=== PATIENT | female | born 1990 | race African-American/Black ===

== ENCOUNTER 2017-03-26 03:17 | Emergency (ER) | payer SELFPAY ==
[2017-03-26 03:27] VITALS: BP 146/87; BMI 95.7
--- NOTE | 2017-03-26 03:49 | DR.GENAD ---
HPI - PCP Primary Care Physician: NFD - Complaint/Symptoms Chief Complaint:: FACIAL PAIN AND NOSE BLEED - Nurses notes reviewed Nurses Notes Review: Yes - Source History Provided: Patient - Mode of Arrival Mode of Arrival: Ambulatory - Timing Onset of Chief Complaint: 03/26/17 Came on: Suddenly - Duration Duration: Constant Duration: Minutes - Location Location: face - Severity Severity: Mild - Modifying Factors Worsens:: palpation - Associated Signs and Symptoms Associated Signs and Symptoms: nose bleed PMH - PMH Past Medical History: No Past Surgical History: No - Family History History of Family Medical Conditions: Yes Family Medical History: Diabetes Mellitus - Social History Alcohol Use: Occasionally Do you use any recreational Drugs:: Yes (MJ) Lives With: Family Lives Where: Home - infectious screening In the last 2 months have you had wt loss of >10#?: NO Have you had fever, night sweats or hemotysis?: No Have you traveled outside the country in the last 6 months?: No Isolation: Standard ROS - Review of Systems Constitutional: No Symptoms Reported Eyes: No Symptoms Reported ENTM: Nose Pain, Epistaxis Respiratoy: No Symptoms Reported Cardiovascular: No Symptoms Reported Gastrointestinal/Abdominal: No Symptoms Reported Genitourinary: No Symptoms Reported Neurological: No Symptoms Reported Musculoskeletal: No Symptoms Reported Integumentary: No Symptoms Reported Hematologic/Lymphatic: No Symptoms Reported Endocrine: No Symptoms Reported Psychiatric: No Symptoms Reported PE - Vital Signs Vitals: Temperature 98.2 F Pulse Rate 118 Respiratory Rate 16 Blood Pressure 146/87 O2 Sat by Pulse Oximetry 99 - General Limitations: No Limitations General Appearance: Alert, In No Apparent Distress - Head Head Exam: Normal Inspection - Eyes Eye exam: Normal Appearance, EOMI. negative: Scleral Icterus, Conjunctival Injection - ENT ENT Exam: Normal Oropharynx External Ear Exam: Normal External Inspection Nose Exam: Other (painful and bleeding) Mouth Exam: Normal Inspection Throat Exam: Normal Inspection - Neck Neck Exam: Normal Inspection, Full ROM, Trachea Midline - Chest Chest Inspection: Normal Inspection - Respiratory Respiratory Exam: negative: Accessory Muscle Use, Respiratory Distress - Abdominal Exam Abdominal Exam: Other (morbid obesity) - Extremities Extremities Exam: Normal Inspection, Full ROM - Back Back Exam: Normal Inspection, Full ROM - Neurologic Neurological Exam: Alert, Oriented X3, CN II-XII Intact - Psychiatric Psychiatric Exam: Depressed - Skin Skin Exam: Intact, Normal Color ROR - XRAY XRAY Interpreted by: Self XRAY Findings: Nasal xray: no fx - Diagnosis Discharge Problem: Epistaxis Contusion, nose Qualifiers: Encounter type: initial encounter Qualified Code(s): S00.33XA - Contusion of nose, initial encounter - Discharge Plan Condition: Stable Prescriptions: Ibuprofen [Motrin Tab 800 mg] 800 mg PO Q8H PRN #30 tab PRN Reason: Pain/Inflammation - Follow ups/Referrals Follow ups/Referrals: NFD,None [Primary Care Provider] - 3 days - Instructions Instructions: Contusion, [id number], Nosebleed, [id number]
[2017-03-26] MEDS ORDERED: ULTRAM PO ONE (03:52)
[2017-03-26] MEDS ORDERED: ULTRAM ONE (03:54)
--- NOTE | 2017-03-26 05:06 | RAD ---
EXAM: Nasal Bone X-Ray Exam INDICATION: Trauma COMPARISION: No prior TECHNIQUE: AP and lateral views were obtained, four views FINDINGS: There is no evidence of a nasal bone fracture. The nasal septum is midline. The bones of the face ar e intact. No radiopaque foreign body. IMPRESSION: No acute bony abnormality identified. Reported By:
== END 2017-03-26 04:57 | disposition home or self-care (01) ==
LOC: ER 03:17
DX: S00.33XA Contusion of nose, initial encounter (principal); R04.0 Epistaxis; X58.XXXA Exposure to other specified factors, initial encounter; Y92.9 Unspecified place or not applicable
CPT/HCPCS: 70160; 99282